=== PATIENT | female | born 1990 | race African-American/Black ===

== ENCOUNTER 2017-02-26 09:21 | Inpatient (IN) | payer OTHER, SELFPAY ==
[~2017-02-26] VITALS: Ht 160 cm; Wt 53.1 kg
[2017-02-26] MEDS ORDERED: ONDANSETRON 4MG/2ML VIAL (J2405) As Ordered ONE (09:31)
[2017-02-26] MEDS ORDERED: LUNE1TAB5 PO (09:38)
[2017-02-26] MEDS ORDERED: CYCL10TA PO (09:38)
[2017-02-26] MEDS ORDERED: NS 1,000 ML IV ONE ×2 (09:45→14:00)
[2017-02-26] MEDS ORDERED: ONDANSETRON 4MG/2ML VIAL (J2405) IV ONE ×2 (09:45→11:15)
[2017-02-26 09:54] LABS: MEAN CORPUSCULAR HEMOGLOBIN 34.7 pg (27.0-33.0); MEAN CORPUSCULAR HGB CONC 36.2 g/dl (32.0-36.5); MEAN CORPUSCULAR VOLUME 95.8 fl (80.0-96.0); RED CELL DISTRIBUTION WIDTH 11.3 % (11.5-14.5); WHITE BLOOD COUNT 8.3 K/mm3 (4.0-10.0)
[2017-02-26 11:14] LABS: ALBUMIN 3.7 GM/DL (3.2-5.2); ALBUMIN/GLOBULIN RATIO 0.97 (1.00-1.93); ALKALINE PHOSPHATASE 71 U/L (45-117); ALT/SGPT 10 U/L (12-78); ANION GAP 15 MEQ/L (8-16); AST/SGOT 15 U/L (15-37); BILIRUBIN,DIRECT 0.1 MG/DL (0.0-0.2); BILIRUBIN,TOTAL 0.6 MG/DL (0.2-1.0); BLOOD UREA NITROGEN 10 MG/DL (7-18); CALCIUM LEVEL 8.7 MG/DL (8.5-10.1); CARBON DIOXIDE LEVEL 19 MEQ/L (21-32); CHLORIDE LEVEL 111 MEQ/L (98-107); CREATININE FOR GFR 1.02 MG/DL (0.55-1.02); GLOMERULAR FILTRATION RATE > 60.0 (>60); GLUCOSE, FASTING 83 MG/DL (70-105); POTASSIUM SERUM 3.2 MEQ/L (3.5-5.1); SODIUM LEVEL 145 MEQ/L (136-145); TOTAL PROTEIN 7.5 GM/DL (6.4-8.2)
[2017-02-26 11:16] LABS: CONTROL LINE HCG INT CTR LINE PRESENT
[2017-02-26 13:08] LABS: METHADONE URINE NEGATIVE (NEGATIVE)
[2017-02-26] MEDS ORDERED: POTASSIUM CHLORIDE 10 MEQ SR TABLET PO ONE (15:15)
[2017-02-26] MEDS ORDERED: NEXP1IMP SC (18:21)
[2017-02-26] MEDS ORDERED: LIDO5DIS41 TD (18:21)
[2017-02-26] MEDS ORDERED: STRITAB2 PO (18:21)
[2017-02-26] MEDS ORDERED: MAALOX 30 ML SUSP *UDC PO PRN (19:00)
[2017-02-26] MEDS ORDERED: ACETAMINOPHEN TAB 650MG DOSE (2X325MG) PO PRN (19:00)
[2017-02-26] MEDS ORDERED: LIDOCAINE 5% (LIDODERM) PATCH TD ONE (19:00)
[2017-02-26] MEDS ORDERED: MOM 30ML SUSPENSION UDC PO PRN (19:00)
[2017-02-26 20:56] VITALS: BP 103/58
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
[2017-02-26] MEDS: CYCLOBENZAPRINE 10 MG TAB PO SCH (21:37)
--- NOTE | 2017-02-27 04:57 | HPE ---
DATE OF ADMISSION: 02/26/2017 HISTORY OF PRESENT ILLNESS: Please refer to psychiatric history and evaluation for further details on this admission. This examination and history is intended for medical issues, which may need treatment, followup or consult on this 26-year-old female. PRIMARY CARE PROVIDER: [facility]. ALLERGIES: No known allergies. SOCIAL HISTORY: She is , but getting . 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 She is currently living temporarily with a friend [place]. She has one son 5 years old, who lives in [place] with her family. She did go home to visit him last month. Ethyl alcohol (EtOH): About once a month. Smokes none. Recreational drug use: None. PAST MEDICAL HISTORY: She was diagnosed with HIV in June of 2016. She is receiving treatment. She was seen and treated at [facility]. PAST SURGICAL HISTORY: Negative. HOME MEDICATIONS: - cyclobenzaprine 10 mg by mouth three times a day as needed for muscle spasm - Lidoderm 5% patch one topically daily as needed for low back ache - etonogestrel 68 mg subcutaneously as directed - Stribild 150/150/200/300 one tablet by mouth nightly - Lunesta 1 mg by mouth nightly as needed for sleep LABORATORY STUDIES: WBC 8.3, hemoglobin 13.9, hematocrit 38.2, MCV 95.8, platelets 241. Sodium 145, potassium 3.2 and she has received replacement, chloride 111, CO2 19, BUN and creatinine 10 and 1.02. Urine alcohol 0.198. REVIEW OF SYSTEMS: 10-system review was done. She had no current complaints. OBJECTIVE: Height 5 feet 3 inches, weight 55.7 kg. Blood pressure 112/62, pulse 82, respirations 16. Patient is alert and oriented times three. Pupils equal and react to light. Extraocular muscles intact. Cornea and sclerae clear. Conjunctivae were normal. No facial asymmetry. Pharynx, tongue and gums pink and moist. Tongue is midline. Neck is supple without lymphadenopathy. No thyromegaly, no goiter. Carotids 2+ without bruit. Chest clear to auscultation without wheeze or retraction. Heart is regular. Abdomen is benign. Bowel sounds positive. Genitourinary/rectal: Not done. Extremities: Show equal strength, full range of motion. No cyanosis, clubbing or edema. Peripheral pulses equal and palpable bilaterally. Skin is warm and dry. IMPRESSION/PLAN: Psychiatric plan per psychiatry. Continue her HIV medications. Continued followup at [facility] as ordered. Recheck potassium level in the morning.
[2017-02-27 06:51] VITALS: BP 116/56
--- NOTE | 2017-02-27 08:29 | ECGEPIP ---
Stationary ECG Study 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
[2017-02-27 08:45] LABS: ALBUMIN 3.8 GM/DL (3.2-5.2); ALBUMIN/GLOBULIN RATIO 1.12 (1.00-1.93); ALKALINE PHOSPHATASE 77 U/L (45-117); ALT/SGPT 15 U/L (12-78); ANION GAP 13 MEQ/L (8-16); AST/SGOT 20 U/L (15-37); BILIRUBIN,TOTAL 0.9 MG/DL (0.2-1.0); BLOOD UREA NITROGEN 8 MG/DL (7-18); CALCIUM LEVEL 8.6 MG/DL (8.5-10.1); CARBON DIOXIDE LEVEL 20 MEQ/L (21-32); CHLORIDE LEVEL 109 MEQ/L (98-107); CREATININE FOR GFR 0.73 MG/DL (0.55-1.02); GLOMERULAR FILTRATION RATE > 60.0 (>60); GLUCOSE, FASTING 62 MG/DL (70-105); POTASSIUM SERUM 4.5 MEQ/L (3.5-5.1); SODIUM LEVEL 142 MEQ/L (136-145); TOTAL PROTEIN 7.2 GM/DL (6.4-8.2)
[2017-02-27] MEDS ORDERED: **NOTE PATIENT COMMENT** MISC XX ONE (09:00)
[2017-02-27] MEDS: LIDOCAINE 5% (LIDODERM) PATCH TD SCH (10:47)
[2017-02-27] MEDS: CYCLOBENZAPRINE 10 MG TAB PO SCH (10:48)
[2017-02-27] MEDS ORDERED: CYCLOBENZAPRINE 10 MG TAB PO PRN (12:00)
[2017-02-27] MEDS ORDERED: hydrOXYzine 50 MG TAB PO PRN (12:00)
[2017-02-27] MEDS: CitaloPRAM (CeleXA) 20 MG TAB PO SCH (15:15)
[2017-02-27 18:00] VITALS: BP 133/59
[2017-02-27] MEDS: **NOTE PATIENT COMMENT** MISC XX SCH (20:56)
[2017-02-27] MEDS: traZODone 50 MG TAB PO PRN (20:57)
[2017-02-28 06:00] VITALS: BP 111/63
[2017-02-28] MEDS: CitaloPRAM (CeleXA) 20 MG TAB PO SCH (08:28)
[2017-02-28] MEDS: LIDOCAINE 5% (LIDODERM) PATCH TD SCH (08:28)
--- NOTE | 2017-02-28 16:50 | MHIPNPDOC ---
[facility] Progress Note Progress Note DATE OF SERVICE: 02/28/17 INTERVAL HISTORY: Medication Side effects: Denies medication side effects Behavior: Has been reported to be calm, cooperative, has attended groups, has not been irritable or aggressive Group Attendance: Has been attending groups Psychiatric Symptom change: Patient is less anxious, she is not agitated, she is less depressed, she is goal directed. VITAL SIGNS: See below. NEW TEST RESULTS: See below CURRENT MEDICATIONS: See below. MENTAL STATUS EXAMINATION: General: Alert, oriented 3, cooperative with interview, good eye contact, good hygiene, dressed in hospital clothes Speech: Spontaneous and fluent Thought processes: Intact Thought content: Coherent and goal directed Abstract reasoning, and computation: Fair Description of associations: Good Description of abnormal or psychotic thoughts: She denies homicidal and suicidal ideation, denies thought delusions, denies auditory and visual hallucinations Judgment: Improving Insight: Improving Orientation: Oriented 3 Recent and remote memory: Intact Attention span and concentration: Fair Fund of knowledge: Adequate Mood: Sad and anxious but less compared to admission Affect: Congruent to mood DIAGNOSES: 1. Major depressive disorder, moderate to severe secondary to medical condition 2. Alcohol use disorder ASSESSMENT: Patient is depressed because due to her medical condition she will have to be re-stationed in [place] and she would like to go there because she would be too far from her family. She would like to be close to her family so that she could bring her child from [facility] and has the relatives take care of him as she works. scheduling manager has presented her with the idea of bringing some of her relatives to [place] to live with her and take care of her child but she doesn't think that is feasible. Patient is high enough good response to medications, will monitor closely and if she continues to improve will be discharged on the or March 03. We will follow-up. TIME SPENT: 30 minutes. Vital Signs Vital Signs Date Time Temp Pulse Resp B/P (MAP) Pulse Ox O2 Delivery O2 Flow Rate FiO2 02/28/17 06:00 98.5 89 18 111/63 (79) 02/26/17 20:56 100 Room Air Current Medications Current Medications Acetaminophen (Tylenol Tab) 650 mg Q6HP PRN PO HEADACHE or DISCOMFORT; Start at 19:00; Stop 03/28/17 at 18:59 Al Hydrox/Mg Hydrox/Simethicone (Mylanta) 30 ml Q4HP PRN PO HEARTBURN/ INDIGESTION; Start 02/26/17 at 19:00; Stop 03/28/17 at 18:59 Citalopram Hydrobromide (CeleXA) 20 mg DAILY PO Last administered on 02/28/17 08:28; Start 02/27/17 at 09:00; Stop 03/29/17 at 08:59 Cyclobenzaprine HCl (Flexeril) 10 mg TID PO Last administered on 02/27/17 10: 48; Start 02/26/17 at 21:00; Stop 02/27/17 at 12:00; Status DC Cyclobenzaprine HCl (Flexeril) 10 mg TID PRN PO MUSCLE TIGHTNESS; Start at 12:00; Stop 03/29/17 at 11:59 Home Med (Med Rec Complete!) ASDIRECTED XX ; Start 02/26/17 at 18:30; Stop at 18:30; Status DC Hydroxyzine HCl (Atarax) 50 mg Q6HP PRN PO ANXIETY/AGITATION; Start 02/27/17 at 12:00; Stop 03/29/17 at 11:59 Lidocaine (Lidoderm Patch) 1 patch DAILY TD Last administered on 02/28/17 08: 28; Start 02/27/17 at 09:00; Stop 03/29/17 at 08:59 Magnesium Hydroxide (Milk Of Magnesia) 30 ml DAILYPRN PRN PO CONSTIPATION; Start 02/26/17 at 19:00; Stop 03/28/17 at 18:59 Non-Formulary Medication ( See Comment Field Below ) REMOVE LIDODERM PATCH DAILY@21 XX Last administered on 02/27/17 20:56; Start 02/27/17 at 21:00; Stop 03/29/17 at 20:59 Trazodone HCl (Desyrel) 50 mg QHSP PRN PO INSOMNIA Last administered on 20:57; Start 02/26/17 at 19:00; Stop 03/28/17 at 18:59 Allergies Coded Allergies: No Known Allergies (Unverified , 02/26/17) AVE CRUZ MD Feb 28, 2017 16:50
[2017-02-28 18:00] VITALS: BP 113/73
[2017-02-28] MEDS: **NOTE PATIENT COMMENT** MISC XX SCH (20:04)
[2017-02-28] MEDS: traZODone 50 MG TAB PO PRN (20:06)
[2017-03-01 07:08] VITALS: BP 108/70
[2017-03-01] MEDS: CitaloPRAM (CeleXA) 20 MG TAB PO SCH (08:02)
[2017-03-01] MEDS: LIDOCAINE 5% (LIDODERM) PATCH TD SCH (08:03)
[2017-03-01] MEDS ORDERED: STRIBILD PO SCH (09:00)
[2017-03-01 18:22] VITALS: BP 114/69
[2017-03-01] MEDS: **NOTE PATIENT COMMENT** MISC XX SCH (20:07)
[2017-03-01] MEDS: STRIBILD PO SCH (20:07)
[2017-03-01] MEDS: traZODone 50 MG TAB PO PRN (20:08)
--- NOTE | 2017-03-01 20:50 | MHIPNPDOC ---
[facility] Progress Note Progress Note DATE OF SERVICE: 03/01/17 INTERVAL HISTORY: Medication Side effects: Patient denies medication side effects Behavior: Patient has requested to speak to her 5 year old child who lives in [place] and it has improved her mood. Group Attendance: Has been attending groups Psychiatric Symptom change: Mood and affect are brighter VITAL SIGNS: See below. NEW TEST RESULTS: See below CURRENT MEDICATIONS: See below. MENTAL STATUS EXAMINATION: General: Alert, oriented x 3, cooperative, pleasant, with good eye contact, smiles, dressed in hospital clothes Speech: Spontaneous and fluent Thought processes: Coherent, rational Thought content: Coherent and goal directed Abstract reasoning, and computation: Good Description of associations: Good Description of abnormal or psychotic thoughts: She denies homicidal and suicidal ideation, denies thought delusions, denies auditory and visual hallucinations Judgment: Improving Insight: Improved Orientation: Oriented 3 Recent and remote memory: Intact Attention span and concentration: Fair Fund of knowledge: Adequate Mood: Euthymic Affect: Congruent to mood DIAGNOSES: 1. Major depressive disorder, moderate to severe secondary to medical condition 2. Alcohol use disorder ASSESSMENT: Patient has brighter mood and affect, she has spoken with her child who lives in [place] and this has brightened her mood. She's future orientated and goal directed. 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 If patient continues to be Ok, she will be discharged on March 03 TIME SPENT: 30 minutes. Vital Signs Vital Signs Date Time Temp Pulse Resp B/P (MAP) Pulse Ox O2 Delivery O2 Flow Rate FiO2 03/01/17 18:22 99.5 82 16 114/69 (84) Room Air 02/26/17 20:56 100 Current Medications Current Medications Acetaminophen (Tylenol Tab) 650 mg Q6HP PRN PO HEADACHE or DISCOMFORT; Start at 19:00; Stop 03/28/17 at 18:59 Al Hydrox/Mg Hydrox/Simethicone (Mylanta) 30 ml Q4HP PRN PO HEARTBURN/ INDIGESTION; Start 02/26/17 at 19:00; Stop 03/28/17 at 18:59 Citalopram Hydrobromide (CeleXA) 20 mg DAILY PO Last administered on 8/29/17at 08:02; Start 02/27/17 at 09:00; Stop 03/29/17 at 08:59 Cyclobenzaprine HCl (Flexeril) 10 mg TID PO Last administered on 02/27/17 10: 48; Start 02/26/17 at 21:00; Stop 02/27/17 at 12:00; Status DC Cyclobenzaprine HCl (Flexeril) 10 mg TID PRN PO MUSCLE TIGHTNESS; Start at 12:00; Stop 03/29/17 at 11:59 Home Med (Med Rec Complete!) ASDIRECTED XX ; Start 02/26/17 at 18:30; Stop at 18:30; Status DC Hydroxyzine HCl (Atarax) 50 mg Q6HP PRN PO ANXIETY/AGITATION; Start 02/27/17 at 12:00; Stop 03/29/17 at 11:59 Lidocaine (Lidoderm Patch) 1 patch DAILY TD Last administered on 03/01/17 08: 03; Start 02/27/17 at 09:00; Stop 03/29/17 at 08:59 Magnesium Hydroxide (Milk Of Magnesia) 30 ml DAILYPRN PRN PO CONSTIPATION; Start 02/26/17 at 19:00; Stop 03/28/17 at 18:59 Non-Formulary Medication ( See Comment Field Below ) REMOVE LIDODERM PATCH DAILY@21 XX Last administered on 03/01/17 20:07; Start 02/27/17 at 21:00; Stop 03/29/17 at 20:59 Patient Own Medication (Patient'S Own Med) Stribild TABS - ADMINIS... DAILY PO ; Start 03/01/17 at 09:00; Stop 03/01/17 at 09:28; Status DC Patient Own Medication (Patient'S Own Med) Stribild TABS - ADMINIS... DAILY@ 2100 PO Last administered on 03/01/17 20:07; Start 03/01/17 at 21:00; Stop at 20:59 Trazodone HCl (Desyrel) 50 mg QHSP PRN PO INSOMNIA Last administered on 20:08; Start 02/26/17 at 19:00; Stop 03/28/17 at 18:59 Allergies Coded Allergies: No Known Allergies (Unverified , 02/26/17) AVE CRUZ MD Mar 01, 2017 20:50
[2017-03-02 06:58] VITALS: BP 98/53
[2017-03-02] MEDS: LIDOCAINE 5% (LIDODERM) PATCH TD SCH (08:39)
[2017-03-02] MEDS: CitaloPRAM (CeleXA) 20 MG TAB PO SCH (08:39)
--- NOTE | 2017-03-02 13:51 | MHIPNPDOC ---
[facility] Progress Note Progress Note DATE OF SERVICE: 03/02/17 INTERVAL HISTORY: Medication Side effects: No side effects reported Behavior: Patient is compliant with [facility] rules and regulations, has kept a good attitude with peers and staff, she's not violent or aggressive. Group Attendance: Has been attending some groups but she has not attended meditation. She was encouraged to do it Psychiatric Symptom change: Brighter mood and affect VITAL SIGNS: See below. NEW TEST RESULTS: See below CURRENT MEDICATIONS: See below. MENTAL STATUS EXAMINATION: General: Alert, oriented x 3, cooperative, pleasant, with good eye contact, smiles, dressed in personal clothes Speech: Coherent Thought processes: Intact Thought content: Coherent and goal directed Abstract reasoning, and computation: Good Description of associations: Good Description of abnormal or psychotic thoughts: She denies homicidal and suicidal ideation, denies thought delusions, denies auditory and visual hallucinations Judgment: Improved Insight: Improved Orientation: Oriented 3 Recent and remote memory: Intact Attention span and concentration: Good Fund of knowledge: Adequate Mood: Euthymic Affect: Congruent to mood DIAGNOSES: 1. Major depressive disorder, moderate to severe secondary to medical condition 2. Alcohol use disorder ASSESSMENT: Patient will be discharged tomorrow. she is not suicidal, homicidal or psychotic. she has stated several times she never intended to kill herself, she took those two pills with alcohol to be able to go to sleep because she had not been sleeping for several days. She has several psychosocial stressors. She is not in danger to self or others. Will re asses tomorrow before she is discharged. TIME SPENT: 30 minutes. Vital Signs Vital Signs Date Time Temp Pulse Resp B/P (MAP) Pulse Ox O2 Delivery O2 Flow Rate FiO2 03/02/17 06:58 99.9 100 20 98/53 (68) Room Air 02/26/17 20:56 100 Current Medications Current Medications Acetaminophen (Tylenol Tab) 650 mg Q6HP PRN PO HEADACHE or DISCOMFORT; Start at 19:00; Stop 03/28/17 at 18:59 Al Hydrox/Mg Hydrox/Simethicone (Mylanta) 30 ml Q4HP PRN PO HEARTBURN/ INDIGESTION; Start 02/26/17 at 19:00; Stop 03/28/17 at 18:59 Citalopram Hydrobromide (CeleXA) 20 mg DAILY PO Last administered on 03/02/17 08:39; Start 02/27/17 at 09:00; Stop 03/29/17 at 08:59 Cyclobenzaprine HCl (Flexeril) 10 mg TID PO Last administered on 02/27/17 10: 48; Start 02/26/17 at 21:00; Stop 02/27/17 at 12:00; Status DC Cyclobenzaprine HCl (Flexeril) 10 mg TID PRN PO MUSCLE TIGHTNESS; Start at 12:00; Stop 03/29/17 at 11:59 Home Med (Med Rec Complete!) ASDIRECTED XX ; Start 02/26/17 at 18:30; Stop at 18:30; Status DC Hydroxyzine HCl (Atarax) 50 mg Q6HP PRN PO ANXIETY/AGITATION; Start 02/27/17 at 12:00; Stop 03/29/17 at 11:59 Lidocaine (Lidoderm Patch) 1 patch DAILY TD Last administered on 03/02/17 08: 39; Start 02/27/17 at 09:00; Stop 03/29/17 at 08:59 Magnesium Hydroxide (Milk Of Magnesia) 30 ml DAILYPRN PRN PO CONSTIPATION; Start 02/26/17 at 19:00; Stop 03/28/17 at 18:59 Non-Formulary Medication ( See Comment Field Below ) REMOVE LIDODERM PATCH DAILY@21 XX Last administered on 03/01/17 20:07; Start 02/27/17 at 21:00; Stop 03/29/17 at 20:59 Patient Own Medication (Patient'S Own Med) Stribild TABS - ADMINIS... DAILY PO ; Start 03/01/17 at 09:00; Stop 03/01/17 at 09:28; Status DC Patient Own Medication (Patient'S Own Med) Stribild TABS - ADMINIS... DAILY@ 2100 PO Last administered on 03/01/17 20:07; Start 03/01/17 at 21:00; Stop at 20:59 Trazodone HCl (Desyrel) 50 mg QHSP PRN PO INSOMNIA Last administered on 20:08; Start 02/26/17 at 19:00; Stop 03/28/17 at 18:59 Allergies Coded Allergies: No Known Allergies (Unverified , 02/26/17) AVE CRUZ MD Mar 02, 2017 13:51
[2017-03-02 18:00] VITALS: BP 104/56
[2017-03-02] MEDS: STRIBILD PO SCH (20:30)
[2017-03-02] MEDS: traZODone 50 MG TAB PO PRN (20:30)
[2017-03-02] MEDS: **NOTE PATIENT COMMENT** MISC XX SCH (21:09)
[2017-03-03 06:48] VITALS: BP 117/64
[2017-03-03] MEDS: CitaloPRAM (CeleXA) 20 MG TAB PO SCH (08:09)
[2017-03-03] MEDS: LIDOCAINE 5% (LIDODERM) PATCH TD SCH (08:09)
[2017-03-03] MEDS ORDERED: CELE20TA PO (10:14)
[2017-03-03] MEDS ORDERED: TRAZO50TA PO (10:14)
[2017-03-03] MEDS ORDERED: HYDRO50TAB PO (10:14)
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
== END 2017-03-03 13:15 | disposition home or self-care (01) | DRG 885 ==
LOC: EDBD 09:21 → M ED 09:21 → M ED INP 18:46 → M PSY 20:00
PROVIDERS: ADMIT Psychiatry & Neurology Psychiatry; ATTEND Psychiatry & Neurology Psychiatry
DX: F32.2 Major depressive disorder, single episode, severe without psychotic features (principal); Z79.899 Other long term (current) drug therapy